=== PATIENT | female | born 1990 | race Caucasian/White ===

== ENCOUNTER 2022-03-26 05:12 | Inpatient (IN) | payer OTHER ==
[~2022-03-26] VITALS: Ht 162.6 cm; Wt 1.8 kg
[2022-03-26] MEDS ORDERED: INTEGRA F CAPS1 EAC1 PO (07:10)
[2022-03-26] MEDS ORDERED: FOLIC ACID1 MG PO (07:12)
[2022-03-28] MEDS ORDERED: PREVIDENT 500051 GM (08:49)
== END 2022-04-22 13:51 | disposition home or self-care (01) | DRG 786 ==
LOC: LDR 05:12 → OB/GYN 05:12
PROVIDERS: ADMIT Obstetrics & Gynecology; ATTEND Obstetrics & Gynecology
PROC: 4A1HXCZ Monitoring of Products of Conception, Cardiac Rate, External Approach (ICD-10-PCS; 2022-03-26)
PROC: BY4FZZZ Ultrasonography of Third Trimester, Single Fetus (ICD-10-PCS; 2022-03-26)
PROC: BY4FZZZ Ultrasonography of Third Trimester, Single Fetus (ICD-10-PCS; 2022-03-31)
PROC: BY4FZZZ Ultrasonography of Third Trimester, Single Fetus (ICD-10-PCS; 2022-04-06)
PROC: BY4FZZZ Ultrasonography of Third Trimester, Single Fetus (ICD-10-PCS; 2022-04-13)
PROC: 10D00Z1 Extraction of Products of Conception, Low, Open Approach (ICD-10-PCS; principal; 2022-04-19 14:00)
DX: O36.8130 Decreased fetal movements, third trimester, not applicable or unspecified (principal); O60.14X0 Preterm labor third trimester with preterm delivery third trimester, not applicable or unspecified; O42.013 Preterm premature rupture of membranes, onset of labor within 24 hours of rupture, third trimester; O26.843 Uterine size-date discrepancy, third trimester; Z37.0 Single live birth; Z20.822 Contact with and (suspected) exposure to COVID-19; Z3A.31 31 weeks gestation of pregnancy

== ENCOUNTER → 2022-04-25 | Outpatient (CLI) | payer OTHER ==
[~2022-04-25] MED LIST: FOLIC ACID1 MG PO; INTEGRA F CAPS1 EAC1 PO; PREVIDENT 500051 GM
== END | disposition home or self-care (01) ==
LOC: LAB 11:48
DX: Z20.822 Contact with and (suspected) exposure to COVID-19 (principal)